=== PATIENT | male | born 1960 | race Caucasian/White ===

== ENCOUNTER → 2022-05-12 | Outpatient (CLI) | payer OTHER ==
[2022-05-12 14:17] LABS: Appearance,Urine Cloudy (Clear); Bilirubin,Urine Negative (Negative); Blood,Urine Trace (Negative); Color,Urine Yellow (Yellow); Ketones,Urine Negative (Negative); Nitrite,Urine Positive (Negative); Specific Gravity,Urine 1.013 (1.001-1.030); Urobilinogen,Urine 0.2 (0.2,1.0)
[2022-05-12 14:23] LABS: Bacteria,Urine 3+ /HPF (None Seen)
[2022-05-12 15:23] LABS: African American GFR (CKD) 118.1 (60.0-200.0); Anion Gap 10.4 mmol/L (10.00-18.00); BUN/Creat Ratio 19.04 Ratio (12.00-20.00); Blood Urea Nitrogen 13.1 mg/dL (9.0-27.0); Calcium 9.5 mg/dL (8.7-10.3); Carbon Dioxide 26.9 mmol/L (20.0-27.5); Non-African American GFR(CKD) 101.9 (60.0-200.0); Potassium 3.9 mmol/L (3.5-5.5)
[2022-05-12 17:41] LABS: Basophils # (A) 0.07 X 10*3/uL (0.00-0.10); Basophils % (A) 0.7 %; Eosinophils # (A) 0.18 X 10*3/uL (0.04-0.35); Eosinophils % (A) 1.7 %; HCT 39.7 % (39.6-50.0); HGB 13.7 g/dL (13.0-17.0); Immature Grans, Automated 0.4 %; Lymphocytes # (A) 2.76 X 10*3/uL (0.90-5.00); Lymphocytes % (A) 26.7 %; MCH 30.2 pg (27.0-32.0); MCHC 34.5 g/dL (32.0-37.0); MCV 87.4 fL (80.0-97.0); Mean Platelet Volume 11.4 fL (9.5-12.2); Monocytes # (A) 0.43 X 10*3/uL (0.20-1.00); Monocytes % (A) 4.2 %; NRBC Per 100 WBC 0 /100 WBCS (0.0-0.0); Neutrophils # (A) 6.87 X 10*3/uL (1.80-7.70); Neutrophils % (A) 66.3 %; Platelet Count 284 X 10*3/uL (140-440); RBC 4.54 X 10*6/uL (4.40-5.60); RDW 12.1 % (11.5-14.5); WBC 10.35 X 10*3/uL (4.50-10.00)
== END | disposition home or self-care (01) ==
LOC: LABPAT 09:57
PROVIDERS: ATTEND Urology
DX: Z01.812 Encounter for preprocedural laboratory examination (principal); N40.1 Benign prostatic hyperplasia with lower urinary tract symptoms; R31.0 Gross hematuria
CPT/HCPCS: 80048; 81001; 85025; 87086

== ENCOUNTER 2022-05-19 07:22 | Day surgery (SDC) | payer OTHER ==
[2022-05-16 09:03] VITALS: BMI 21.6
--- NOTE | 2022-05-16 14:18 | P.HPIHPCON ---
History of Present Illness H&P Date: 05/16/22 Chief Complaint: BPH, urinary retention This is 62-year-old male with history of urinary retention, underwent a cystoscopy and urodynamic that showed evidence of an obstructive prostate, and evidence of detrusor function. discussed his retention started approximately 6 months ago, initially urodynamic showed no bladder tone, with repeat urodynamic demonstrated evidence of a bladder tone. Discussed with him given the repeat urodynamics showing evidence of bladder function the option of TURP, versus continued catheter versus CIC. He prefers to proceed with a TURP. Discussed the risk which includes but not limited to bleeding, infection, urinary incontinence, strictures, and persistent retention. Discussed also given his comorbidities increased risk of medical complication. He understood all the risk and agreed to proceed with a TURP Consent for Procedure: I have explained the operation/procedure to the patient, including the risks, benefits, side effects, alternative therapies (including not receiving the proposed treatment or service), the likelihood of the patient achieving his/her goals, and potential recuperation problems for the procedure/sedation/analgesia, as well as any blood products, if indicated. I also explained to the patient the risks, benefits and side effects of the alternatives, as well as the risks related to not receiving the proposed procedure, care, treatment, or services. 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 Enlarged prostate. History of Any Multi-Drug Resistant Organisms: None Reported Additional Past Surgical History / Comment(s): "Carotids cleaned out in [place]." Past Anesthesia/Blood Transfusion Reactions: No Reported Reaction Past Psychological History: No Psychological Hx Reported Smoking Status: Current every day smoker Past Alcohol Use History: None Reported Additional Past Alcohol Use History / Comment(s): Has been a smoker for many yrs, <1 ppd. Past Drug Use History: None Reported - Past Family History Mother Family Medical History: Cancer Additional Family Medical History / Comment(s): Lung cancer. Medications and Allergies Home Medications Medication Instructions Recorded Confirmed Type Aspirin [Adult Low Dose Aspirin EC] 81 mg PO QAM 05/16/22 05/16/22 History Atorvastatin [Lipitor] 80 mg PO QAM 05/16/22 05/16/22 History Clopidogrel [Plavix] 75 mg PO QAM 05/16/22 05/16/22 History Folic Acid 1 mg PO QAM 05/16/22 05/16/22 History Meloxicam [Mobic] 15 mg PO QAM 05/16/22 05/16/22 History Pantoprazole Sodium 40 mg PO QAM 05/16/22 05/16/22 History Sertraline HCl [Zoloft] 50 mg PO QAM 05/16/22 05/16/22 History Tamsulosin [Flomax] 0.4 mg PO BID 05/16/22 05/16/22 History amLODIPine BESYLATE [Amlodipine 10 mg PO QAM 05/16/22 05/16/22 History Besylate] lisinopriL [Zestril] 10 mg PO QAM 05/16/22 05/16/22 History rOPINIRole HCL 0.25 mg PO QAM 05/16/22 05/16/22 History Allergies Allergy/AdvReac Type Severity Reaction Status Date / Time No Known Allergies Allergy Verified 05/16/22 08:38 Surgical - Exam - General no distress - Eyes normal ocular movement, no pale - ENT normal nares, normal mucosa - Psychiatric oriented to time, oriented to person, oriented to place Assessment and Plan Assessment: OR for a TURP
[~2022-05-19 07:22] MED LIST: DEXAMETHASONE SOD PHOSPHATE 4 MG/ML 1 ML VIAL IV ONE; GENTAMICIN 120 MG in SODIUM CHLORIDE 0.9% 100 ML IVPB PRN; HYDROmorphone 0.5 MG/0.5 ML SYRINGE IVP PRN; LIDOCAINE 1% (10MG/ML) FOR IV START INTRADERMA PRN; MIDAZOLAM 2 MG/2 ML VIAL IV PRN; ONDANSETRON 4 MG/2 ML VIAL IVP ONE
[2022-05-19 08:16] VITALS: RESP 16
[2022-05-19] MEDS ORDERED: ONDANSETRON 4 MG/2 ML VIAL IVP ONE (08:32)
[2022-05-19] MEDS: LACTATED RINGERS 1,000 ML IV SCH ×2 (08:32→10:35)
[2022-05-19] MEDS ORDERED: DEXAMETHASONE SOD PHOSPHATE 4 MG/ML 1 ML VIAL IVP ONE (08:33)
[2022-05-19] MEDS ORDERED: LIDOCAINE 2% INJ 20 MG/ML (2 ML VIAL) ONE (08:55)
[2022-05-19] MEDS ORDERED: NEOSTIGMINE 1 MG/ML 10 ML VIAL ONE (08:55)
[2022-05-19] MEDS ORDERED: ROCURONIUM 10 MG/ML (5 ML VIAL) IV ONE (08:55)
[2022-05-19] MEDS ORDERED: SUCCINYLCHOLINE CHLORIDE 200 MG/10 ML VIAL IV ONE (08:55)
[2022-05-19] MEDS ORDERED: fentaNYL (PF) 50 MCG/ML 2 ML AMP ONE (08:55)
[2022-05-19] MEDS ORDERED: PROPOFOL 10 MG/ML 20 ML VIAL IV ONE (08:55)
[2022-05-19] MEDS ORDERED: ePHEDrine 50 MG/ML 1 ML VIAL ONE (08:55)
[2022-05-19] MEDS ORDERED: MIDAZOLAM 2 MG/2 ML VIAL ONE (08:55)
[2022-05-19] MEDS ORDERED: PHENYLEPHRINE-0.9% NACL SYG 1,000 MCG/10 ML SYRINGE ONE (08:55)
[2022-05-19] MEDS ORDERED: GLYCOPYRROLATE 0.2 MG/ML 2 ML VIAL ONE (08:55)
[2022-05-19 10:08] VITALS: TEMP 97.7
--- NOTE | 2022-05-19 10:19 | P.OP ---
Date of Procedure: 05/19/22 Preoperative Diagnosis: BPH Postoperative Diagnosis: Same Procedure(s) Performed: Cystoscopy, bipolar TURP Implants: none Anesthesia: MERCEDES Surgeon: Del Bunch Estimated Blood Loss (ml): 25 Pathology: none sent Condition: stable Disposition: PACU Indications for Procedure: This is 62-year-old male with history of urinary retention, underwent a cystoscopy and urodynamic that showed evidence of an obstructive prostate, and evidence of detrusor function. discussed his retention started approximately 6 months ago, initially urodynamic showed no bladder tone, with repeat urodynamic demonstrated evidence of a bladder tone. Discussed with him given the repeat urodynamics showing evidence of bladder function the option of TURP, versus continued catheter versus CIC. He prefers to proceed with a TURP. Discussed the risk which includes but not limited to bleeding, infection, urinary incontinence, strictures, and persistent retention. Discussed also given his comorbidities increased risk of medical complication. He understood all the risk and agreed to proceed with a TURP Description of Procedure: Patient brought to the operating room, general anesthesia was induced. He was prepped and draped in sterile fashion and placed in a dorsal lithotomy position. Resectoscope fitted with a 25-Sinhala sheath was inserted per urethra, the resectoscope was advanced into the bladder, cystoscopy was performed which showed normal within the bladder. Of note the bladder was mildly trabeculated. Next using the bipolar button attention was then carried to the TURP. Of note patient had a short prostate, but of significant median bar which was obstructing the bladder neck. Using the bipolar button prostate was vaporized down initially starting with the median lobe and then carried out into the bilateral lateral lobes. Resection was carried distal to the bladder neck and staying proximal to the Veru. Hemostasis was achieved using cautery. Repeat cystoscopy showed no evidence of bleeding from the prosthetic fossa, or injury to the ureteral orifice. The patient had a wide-open bladder neck at the end of the case. At this time the resectoscope was withdrawn and a 20-Sinhala Ob[place] was placed with return of clear urine. Patient tolerated procedure well was taken to recovery in stable condition
[2022-05-19 11:57] VITALS: BP 148/78; PULSE 72
--- NOTE | 2022-05-19 11:57 | XR ---
KUB HISTORY: Left UPJ calculus, N 20.1 Frontal KUB and 2 images No comparisons Probable Obregon catheter in place. Vascular calcifications are present within the pelvis. Question of vague calcification at the level of the left L3 transverse process. Overlying bowel gas obscures deta il. Degenerative disc changes are present visualized spine. Lung bases are clear. No evident bowel ob struction or pneumoperitoneum. IMPRESSION: Calcification described in patient's history is not well seen.
== END 2022-05-19 11:50 | disposition home or self-care (01) ==
LOC: OR 07:22
PROVIDERS: ATTEND Urology
DX: N40.1 Benign prostatic hyperplasia with lower urinary tract symptoms (principal); R33.8 Other retention of urine; N20.1 Calculus of ureter; Z90.79 Acquired absence of other genital organ(s); I10 Essential (primary) hypertension; E78.5 Hyperlipidemia, unspecified; K21.9 Gastro-esophageal reflux disease without esophagitis; Z86.73 Personal history of transient ischemic attack (TIA), and cerebral infarction without residual deficits; F17.210 Nicotine dependence, cigarettes, uncomplicated
CPT/HCPCS: 74018; 52601; J2250; J0330; J1100; J2710; J0690; J2405; J3010; J1580; J2370; J2704; J2001

== ENCOUNTER → 2023-12-18 | Outpatient (CLI) | payer OTHER ==
--- NOTE | 2023-12-19 15:29 | CT ---
EXAMINATION TYPE: CT angio head neck CT DLP: 1415.6 mGycm, Automated exposure control for dose reduction was used. DATE OF EXAM: 12/18/2023 4:44 PM COMPARISON: None CLINICAL INDICATION:Male, 63 years old with history of I65.29 CAROTID STENOSIS; PHH, Left side weakne ss TECHNIQUE: Axially acquired helical CT angiogram of the head and neck was obtained with contrast. Axi al images are supplemented with 3D reconstructions and MIP images which were post-processed at an in dependent workstation. NASCET criteria used. Contrast used:65 mL of Isovue 370 without and with IV Contrast, Oral contrast used: None. FINDINGS: CTA HEAD: No evidence of acute intracranial hemorrhage, mass effect, or midline shift. The ventricles, sulci, a nd cisterns are unremarkable. Encephalomalacia is seen within the right frontal/parietal occipital lo be and left occipital lobe. Atherosclerosis of intracranial arteries. The visualized portions of the internal carotid arteries, middle cerebral arteries, anterior cerebral arteries, and posterior cerebral arteries are patent. There is a vascular malformation in the left p arietal region with small nidus. The basilar and vertebral arteries are patent. CTA NECK: Right Carotid System: The common carotid artery and external carotid artery are patent. The carotid bifurcation demonstrate s no evidence of hemodynamically significant stenosis. The remaining portions of the internal carotid artery demonstrate normal size without significant narrowing. Left Carotid System: The common carotid artery and external carotid artery are patent. The carotid bifurcation demonstrate s no evidence of hemodynamically significant stenosis. The remaining portions of the internal carotid artery demonstrate normal size without significant narrowing. Vertebral arteries are patent without evidence hemodynamically significant stenosis. There is a three-vessel aortic arch. The right vertebral artery is patent and dominant. Left vertebra l artery is diminutive with multiple areas of nonvisualization throughout its course with reconstitut ion. Surgical changes to the right neck. Upper thorax: Mild emphysema changes in the lung apices. IMPRESSION: 1. 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 There is a diminutive caliber of the left vertebral artery compared to the right. 2. 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 3. No evidence for significant stenosis at the carotid bifurcation.
== END | disposition home or self-care (01) ==
LOC: RADCTMAIN 15:27
PROVIDERS: ATTEND Family Medicine
DX: I65.02 Occlusion and stenosis of left vertebral artery (principal); I65.29 Occlusion and stenosis of unspecified carotid artery; Q27.9 Congenital malformation of peripheral vascular system, unspecified; R53.1 Weakness; R42 Dizziness and giddiness; Z86.73 Personal history of transient ischemic attack (TIA), and cerebral infarction without residual deficits; Z98.890 Other specified postprocedural states
CPT/HCPCS: 70496; 70498; Q9967

== ENCOUNTER → 2024-06-09 | Outpatient (CLI) | payer OTHER ==
--- NOTE | 2024-06-09 10:43 | CT ---
EXAMINATION TYPE: CT angio head neck DATE OF EXAM: 06/09/2024 COMPARISON: 12/18/2023 CLINICAL INDICATION: Male, 64 years old with history of R42 Dizziness; I63.9 CVA; G45.9 TIA; PHH, DIZ ZINESS TECHNIQUE: CTA scan of the head and neck is performed with IV Contrast, patient injected with 65 mL of Isovue 370, axial images are obtained, coronal and sagittal reformatted images are reviewed. 3D re constructed images are created on an independent workstation and reviewed. CT DLP: 1415.[address] CTDI: mGy Automated exposure control for dose reduction was used. NASCET criteria was used in interpretation of this exam? FINDINGS: The brachiocephalic origins are widely patent and no significant stenosis. There are postsurgical changes of right carotid endarterectomy. There is no right common and internal carotid artery stenosis. There is atherosclerotic plaque of the left carotid bifurcation resulting i n mild left proximal internal carotid artery stenosis. The right vertebral artery is markedly dominan t compared to the left vertebral artery. Continuous left vertebral artery is not identified raising t he question of multiple small segmental occlusions as described on the prior study. Intracranially, there is calcification of the carotid siphons resulting in bilateral mild stenoses. T here is no segmental occlusion or aneurysm sac. There is a stable arteriovenous malformation in the l eft frontal region. IMPRESSION:. 1. Right carotid endarterectomy with no significant right common internal carotid artery stenosis. 2. No significant stenosis of the left common or internal carotid artery despite eccentric calcified plaque formation. 3. Markedly diminutive left vertebral artery with nonvisualized segments throughout its course castro kohler the question of small segmental occlusions, unchanged compared to previous. 4. 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 NASCET criteria was used in interpretation of this exam? [facility], , 06/09/2024 10:40 AM
== END | disposition home or self-care (01) ==
LOC: RADCTMAIN 09:24
PROVIDERS: ATTEND Family Medicine
DX: I63.9 Cerebral infarction, unspecified (principal); I65.23 Occlusion and stenosis of bilateral carotid arteries; R42 Dizziness and giddiness; Z86.73 Personal history of transient ischemic attack (TIA), and cerebral infarction without residual deficits
CPT/HCPCS: 70496; 70498; Q9967